=== PATIENT | female | born 1975 | race Caucasian/White ===

== ENCOUNTER 2019-05-15 19:21 | Emergency (ER) | payer MEDICAID ==
[~2019-05-15] VITALS: Ht 165.1 cm; Wt 72.0 kg
[2019-05-15 19:25] VITALS: BP 148/71
[2019-05-15 19:59] LABS: CLARITY,URINE CLEAR (Clear); COLOR,URINE YELLOW (Yellow); GLUCOSE, URINE NEGATIVE (Neg); KETONES,URINE NEGATIVE (Neg); LEUKOCYTE ESTERASE ,URINE SMALL (Neg); NITRITES, URINE NEGATIVE (Neg); OCCULT BLOOD,URINE MODERATE (Neg); PROTEIN,URINE NEGATIVE (Neg)
[2019-05-15 20:01] LABS: URINE HCG NEGATIVE (NEG)
[2019-05-15 20:06] LABS: UA COLLECTION TYPE CLN CATCH MIDSTREAM
[2019-05-15 20:08] LABS: WBC,URINE 0-4 /HPF (0-4)
[2019-05-15 20:09] LABS: BACTERIA,URINE NONE SEEN /HPF (Neg); MUCUS STRANDS MODERATE /LPF (Neg); SQUAMOUS EPITHELIAL CELL,UR MODERATE /LPF (FEW)
[2019-05-15] MEDS ORDERED: CEPH250T PO (20:55)
== END 2019-05-15 21:23 | disposition home or self-care (01) ==
LOC: ER 19:22
DX: N39.0 Urinary tract infection, site not specified (principal); Z88.0 Allergy status to penicillin
CPT/HCPCS: 81001; 81025; 87088; 99283